=== PATIENT | male | born 1975 | race Caucasian/White ===

== ENCOUNTER 2016-09-16 21:29 | Emergency (ER) | payer OTHER, SELFPAY ==
[~2016-09-16] VITALS: Ht 190.5 cm; Wt 118.7 kg
--- NOTE | 2016-09-16 23:40 | REPUSA ---
Clinical history: Pain, swelling. Findings: The right common femoral, superficial femoral, popliteal, and other deep venous structures compress normally and demonstrate normal color Doppler flow. Normal venous waveforms with augmentatio n are seen. Impression: No evidence of deep vein thrombosis in the right femoral popliteal venous system.
[2016-09-17] MEDS ORDERED: NORCO, ANEXSIA 5/325MG TABLET (HYDROcodone/ACETAMINOPHEN) PO ONE (00:30)
[2016-09-17] MEDS ORDERED: NORCOTAB PO (00:31)
[2016-09-17 00:44] VITALS: BP 150/106
[2016-09-17] MEDS ORDERED: CYCL10TA PO (12:40)
[2016-09-17] MEDS ORDERED: NAPR500T PO (12:40)
== END 2016-09-17 00:47 | disposition home or self-care (01) ==
LOC: M ED 22:42
DX: S86.111A Strain of other muscle(s) and tendon(s) of posterior muscle group at lower leg level, right leg, initial encounter (principal); X58.XXXA Exposure to other specified factors, initial encounter; Y92.89 Other specified places as the place of occurrence of the external cause; Y93.89 Activity, other specified; Y99.8 Other external cause status; F17.210 Nicotine dependence, cigarettes, uncomplicated

== ENCOUNTER 2016-09-17 10:31 | Emergency (ER) | payer OTHER ==
[~2016-09-17] VITALS: Ht 188 cm; Wt 118.0 kg
[~2016-09-17 10:31] MED LIST: NORCOTAB PO
[2016-09-17] MEDS ORDERED: KETOROLAC 60 MG/2 ML VIAL (J1885) IM ONE (11:45)
--- NOTE | 2016-09-17 12:18 | REP ---
RIGHT LOWER LEG: AP and lateral views of the right lower leg are performed and compared to prior ankle series 11/19/2013. No fracture or dislocation is seen. Benign cortical mixed density lesion in the distal tibia is stable compared to the prior exam. IMPRESSION: No acute abnormalities. Signed by Luis Marcial MD 09/17/2016 05:21 P
[2016-09-17] MEDS ORDERED: NAPR500T PO (12:40)
[2016-09-17] MEDS ORDERED: CYCL10TA PO (12:40)
[2016-09-17 12:43] VITALS: BP 155/116
== END 2016-09-17 12:51 | disposition home or self-care (01) ==
LOC: M ED 11:05
DX: S86.111A Strain of other muscle(s) and tendon(s) of posterior muscle group at lower leg level, right leg, initial encounter (principal); X58.XXXA Exposure to other specified factors, initial encounter; Y92.89 Other specified places as the place of occurrence of the external cause; Y93.89 Activity, other specified; Y99.8 Other external cause status; F17.210 Nicotine dependence, cigarettes, uncomplicated

== ENCOUNTER 2016-10-13 21:16 | Emergency (ER) | payer OTHER ==
[~2016-10-13] VITALS: Ht 190.5 cm; Wt 114.6 kg
[~2016-10-13 21:16] MED LIST changes: +CYCL10TA PO; +NAPR500T PO
[2016-10-13] MEDS ORDERED: APAP/CODEINE (21:24)
[2016-10-13] MEDS ORDERED: IBUP80TA (21:24)
[2016-10-13] MEDS ORDERED: AMOX500C (21:24)
[2016-10-14] MEDS ORDERED: ONDANSETRON 4 MG ORAL DISINTEGRATING TAB (S0181) PO ONE (00:15)
[2016-10-14] MEDS ORDERED: LIDOCAINE 2% W/EPIN INJ 20ML **PRES FREE INJ ONE (01:30)
[2016-10-14 03:44] VITALS: BP 146/95
== END 2016-10-14 03:46 | disposition home or self-care (01) ==
LOC: M ED 21:16
DX: K91.840 Postprocedural hemorrhage of a digestive system organ or structure following a digestive system procedure (principal)

== ENCOUNTER → 2016-10-19 | Outpatient (REF) | payer OTHER ==
[~2016-10-19] MED LIST changes: +AMOX500C; +APAP/CODEINE; +IBUP80TA
[2016-10-19 12:00] LABS: BASO % 0.5 % (0.0-1.0); EOS # 0.1 K/mm3 (0.0-0.50); EOS % 1.8 % (0.0-3.0); LARGE UNSTAINED CELL # 0.1 K/mm3 (0.0-0.4); LARGE UNSTAINED CELL % 2.2 % (0.0-4.0); LYMPH # 1.4 K/mm3 (1.5-4.5); MEAN CORPUSCULAR HEMOGLOBIN 31.4 pg (27.0-33.0); MEAN CORPUSCULAR HGB CONC 34.8 g/dl (32.0-36.5); MEAN CORPUSCULAR VOLUME 90.2 fl (80.0-96.0); MONO # 0.2 K/mm3 (0.0-0.8); MONO % 4.7 % (0.0-5.0); NEUTROPHILS # 2.6 K/mm3 (1.8-7.7); NEUTROPHILS % 60.9 % (36.0-66.0); PLATELET COUNT, AUTOMATED 150 k/mm3 (150-450); RED CELL DISTRIBUTION WIDTH 13.8 % (11.5-14.5); WHITE BLOOD COUNT 4.2 K/mm3 (4.0-10.0)
[2016-10-19 12:11] LABS: ALBUMIN 3.9 GM/DL (3.2-5.2); ALBUMIN/GLOBULIN RATIO 1.77 (1.00-1.93); ALKALINE PHOSPHATASE 70 U/L (45-117); ALT/SGPT 36 U/L (12-78); ANION GAP 7 MEQ/L (8-16); AST/SGOT 19 U/L (15-37); BILIRUBIN,TOTAL 0.5 MG/DL (0.2-1.0); BLOOD UREA NITROGEN 13 MG/DL (7-18); CALCIUM LEVEL 8.7 MG/DL (8.5-10.1); CARBON DIOXIDE LEVEL 27 MEQ/L (21-32); CHLORIDE LEVEL 110 MEQ/L (98-107); CHOLESTEROL LEVEL 135 MG/DL (<200); CREATININE FOR GFR 1.19 MG/DL (0.70-1.30); FREE T4 1.04 NG/DL (0.76-1.46); GLOMERULAR FILTRATION RATE > 60.0 (>60); GLUCOSE, FASTING 92 MG/DL (70-105); POTASSIUM SERUM 4.2 MEQ/L (3.5-5.1); SODIUM LEVEL 144 MEQ/L (136-145); TOTAL PROTEIN 6.1 GM/DL (6.4-8.2); TRIGLYCERIDES LEVEL 91 MG/DL (<150)
== END ==
LOC: M SFHCPLAZ 08:00
PROVIDERS: ATTEND Nurse Practitioner Family
DX: Z00.00 Encounter for general adult medical examination without abnormal findings (principal); R03.0 Elevated blood-pressure reading, without diagnosis of hypertension; E66.9 Obesity, unspecified; Z13.220 Encounter for screening for lipoid disorders

== ENCOUNTER → 2016-11-01 | Outpatient (REF) | payer OTHER ==
[2016-11-01 11:56] LABS: BASO % 0.5 % (0.0-1.0); EOS # 0.1 K/mm3 (0.0-0.50); EOS % 2.1 % (0.0-3.0); LARGE UNSTAINED CELL # 0.1 K/mm3 (0.0-0.4); LARGE UNSTAINED CELL % 1.9 % (0.0-4.0); LYMPH # 1.4 K/mm3 (1.5-4.5); LYMPH % 34.3 % (24.0-44.0); MEAN CORPUSCULAR HEMOGLOBIN 31.2 pg (27.0-33.0); MEAN CORPUSCULAR HGB CONC 33.6 g/dl (32.0-36.5); MEAN CORPUSCULAR VOLUME 92.7 fl (80.0-96.0); MONO # 0.2 K/mm3 (0.0-0.8); NEUTROPHILS # 2.2 K/mm3 (1.8-7.7); NEUTROPHILS % 55.1 % (36.0-66.0); PLATELET COUNT, AUTOMATED 151 k/mm3 (150-450); RED CELL DISTRIBUTION WIDTH 13.7 % (11.5-14.5); RETIC HEMOGLOBIN CONTENT CHr 31.4 PG (24-36); RETICULOCYTE ABSOLUTE ADVIA212 129 x10(9)/L (17-77)
[2016-11-01 12:11] LABS: PERCENT SATURATION 16.9 % (19.7-37.4)
== END ==
LOC: M SFHCPLAZ 09:04
PROVIDERS: ATTEND Nurse Practitioner Family
DX: D64.9 Anemia, unspecified (principal)

== ENCOUNTER → 2018-10-26 | Outpatient (CLI) | payer OTHER, SELFPAY ==
[~2018-10-26] MED LIST changes: +HYDR-3715 PO; +NAPR-837 PO; -NAPR500T PO; -NORCOTAB PO
--- NOTE | 2018-10-27 07:46 | REP ---
Clinical: Back and hip pain. Technique: Neutral and frog lateral views of the right hip. Findings: No acute fracture or dislocation. Skeletal structures, joint spaces, and surrounding soft tissues are relatively normal for age. Very subtle joint space narrowing and extremely mild spurring along the acetabular roof cannot be excluded. Impression: Essentially age-related changes. Electronically Signed by Jarrett Rizo MD 10/27/2018 07:38 A
--- NOTE | 2018-10-27 07:50 | REP ---
Clinical: Back pain . Technique: AP, lateral, bilateral oblique, and coned-down views. Findings: Alignment and lordosis is maintained. The vertebral bodies including transverse process and spinous processes are intact and normal. There is no evidence for acute fracture / compression injury or subluxation. No evidence for spondylolysis or spondylolisthesis. Minimal endplate sclerosis and disc space narrowing at L4-5 and L5-S1 cannot be excluded. Impression: Essentially age-appropriate examination. Minimal disc space narrowing at L4-5 and L5-S1 cannot be excluded. Electronically Signed by Jarrett Rizo MD 10/27/2018 07:42 A
== END ==
LOC: M RAD 13:59 → EDBD 13:59
PROVIDERS: ATTEND Nurse Practitioner Family
DX: M54.16 Radiculopathy, lumbar region (principal)

== ENCOUNTER 2020-02-04 15:22 | Observation (INO) | payer OTHER, SELFPAY ==
[~2020-02-04] VITALS: Ht 188 cm; Wt 109.9 kg
[~2020-02-04 15:22] MED LIST changes: +CYCL-707 PO; -CYCL10TA PO
[2020-02-04] MEDS ORDERED: AMOX875T2 PO (15:32)
[2020-02-04] MEDS ORDERED: HYDR-3713 PO (15:32)
[2020-02-04] MEDS ORDERED: hydrALAZINE 20MG/ML 1ML VIAL (J0360 PER 20MG) IV STA (16:00)
--- NOTE | 2020-02-04 16:22 | REP ---
INDICATION: hypertensive. COMPARISON: None. TECHNIQUE: Two views provided FINDINGS: Lungs are well inflated without pleural effusion, acute infiltrate, atelectasis or mass. The heart, mediastinal and hilar contours are grossly intact. The aorta is mildly tortuous without gross aneurysm. Airway midline. No mediastinal or hilar mass. Bony thorax shows no acute compression deformity. IMPRESSION: No acute cardiopulmonary disease. <Electronically signed by Ricardo Granda > 02/04/20 [id number]
[2020-02-04 16:45] LABS: BASO % 0.5 % (0.0-1.0); EOS # 0.1 10^3/uL (0.0-0.5); EOS % 1.4 % (0.0-3.0); HEMATOCRIT 40.6 % (42.0-52.0); HEMOGLOBIN 13.8 g/dl (13.5-17.5); LYMPH # 1.8 10^3/uL (1.5-5.0); LYMPH % 26.8 % (24.0-44.0); MEAN CORPUSCULAR HEMOGLOBIN 30.2 pg (27.0-33.0); MEAN CORPUSCULAR VOLUME 88.8 fl (80.0-96.0); MONO # 0.5 10^3/uL (0.0-0.8); NEUTROPHILS # 4.2 10^3/uL (1.5-8.5); PLATELET COUNT, AUTOMATED 141 10^3/uL (150-450); RED BLOOD COUNT 4.57 10^6/uL (4.30-6.10); WHITE BLOOD COUNT 6.6 10^3/uL (4.0-10.0)
[2020-02-04 17:15] LABS: ALBUMIN 3.8 GM/DL (3.2-5.2); ALT/SGPT 33 U/L (12-78); BILIRUBIN,DIRECT 0.2 MG/DL (0.0-0.2); BILIRUBIN,TOTAL 0.8 MG/DL (0.2-1.0); BLOOD UREA NITROGEN 11 MG/DL (7-18); CALCIUM LEVEL 8.5 MG/DL (8.5-10.1); CARBON DIOXIDE LEVEL 30 MEQ/L (21-32); CHLORIDE LEVEL 110 MEQ/L (98-107); CK-MB VALUE MASS 1.9 NG/ML (<3.6); CPK CREATINE PHOSPHOKINASE 81 U/L (39-308); CREATININE FOR GFR 1.09 MG/DL (0.70-1.30); GLOMERULAR FILTRATION RATE > 60.0 (>60); GLUCOSE, FASTING 73 MG/DL (70-100); MB/CK RELATIVE INDEX 2.35 (< OR =4); POTASSIUM SERUM 3.9 MEQ/L (3.5-5.1); SODIUM LEVEL 143 MEQ/L (136-145); TOTAL PROTEIN 6.3 GM/DL (6.4-8.2); TROPONIN I < 0.02 NG/ML (< 0.10)
[2020-02-04] MEDS ORDERED: hydrALAZINE 20MG/ML 1ML VIAL (J0360 PER 20MG) IV ONE (17:30)
[2020-02-04] MEDS ORDERED: AMOX875T PO (17:58)
[2020-02-04] MEDS ORDERED: IBUP1TAB6 PO (17:58)
[2020-02-04] MEDS ORDERED: CAPTOpril 6.25 MG PER 1/2 TABLET PO SCH (18:30)
[2020-02-04] MEDS ORDERED: CAPTOpril 12.5 MG TAB PO ONE (18:45)
--- NOTE | 2020-02-04 19:18 | HPEPDOC ---
[facility] Medical History & Physical Date of Admission Feb 04, 2020 Date of Service: Feb 04, 2020 History and Physical CHIEF COMPLAINT: hypertensive urgency HISTORY OF PRESENT ILLNESS: Mr. rose a 44-year-old male with a history of suspected migraines, was sent to the ER by his dentist after after tooth extraction, where he was noted to have a systolic blood pressure over 200. Extraction was completed. On arrival to the ED, patient's blood pressure was 292, temperature 97.1, respiratory 20, pulse 59, pulse oximetry 99% on room air. She was given a total of 30 mg of IV hydralazine with no improvement in his blood pressure. Highest recorded blood pressure 246/135. Patient denies headache, vision changes, nausea, vomiting, chest pain, shortness of breath or palpitations. He received 6.6. Hemoglobin 13.8. Sodium 143, potassium 3.9, creatinine 1.09, GFR 60. Normal sinus rhythm on EKG. Chest x-ray revealed no abnormality PAST MEDICAL HISTORY: Migraines PAST SURGICAL HISTORY: Patient reports no surgical history SOCIAL HISTORY: Patient denies smoking Patient denies etoh use Patient denies illicit drug use FAMILY HISTORY: Patient reports no family history ALLERGIES: Please see below. REVIEW OF SYSTEMS: CONSTITUTIONAL: patient denies fevers, chills HEENT: patient denies blurred vision, loss of vision, headache,. CARDIOVASCULAR: patient denies chest pain, palpitations. RESPIRATORY: patient denies shortness of breath, cough, hemoptysis. GASTROINTESTINAL: patient denies abdominal pain, n/v/d, blood in stool. GENITOURINARY: patient denies dysuria, discharge. SKIN: patient denies rashes. MUSCULOSKELETAL: patient denies joint pain, neck pain. NEUROLOGICAL: patient denies focal weakness, numbness, seizures. PSYCHIATRIC: patient denies SI/HI. ENDOCRINE: patient denies polyuria, heat intolerance, cold intolerance. HEMATOLOGIC/LYMPHATIC: patient denies easy bruising. HOME MEDICATIONS: Please see below. PHYSICAL EXAMINATION: VITAL SIGNS: please see below General: NAD, comfortable HEENT: PERRLA, EOMI, sclerae clear Neck: supple, normal ROM, no JVD Respiratory: lungs CTAB, no wheeze, no rales, no crackles CVS: RRR, normal S1, S2, no murmurs Abdo: soft, no masses, no hepatosplenomegaly, BS+, no rebound tenderness Extremities: no edema, pulses 2+ MSK: no joint deformities, normal ROM Neuro: no focal neuro deficits, moving all 4 extremities, CN2-12 intact. Strength 5/5 in all 4 extremities. No nystagmus. Psych: calm, cooperative, AAO x 3 LABORATORY DATA: See below. IMAGING: CXR 02/04/20: no acute findings. MICROBIOLOGY: Please see below. ASSESSMENT: 44-year-old male with a history of migraines, admitted for hypertensive urgency. Did not respond to IV hydralazine ER. Admitted for observa tion, management of hypertensive urgency. PLAN: #. Hypertensive urgency: Plan to reduce map by 25% in 24 hours. Ordered captopril 12.5 mg by mouth. 6.25 mg every 2 hours. If no response. Plan to prasad sfer to ICU with nitroglycerin drip. Follow-up on UA. Check 2-D echo. Renal ultrasound and renal artery Dopplers ordered. DVT prophylaxis: Lovenox. Vital Signs Vital Signs Date Time Temp Pulse Resp B/P (MAP) Pulse Ox O2 Delivery O2 Flow Rate FiO2 02/04/20 19:01 216/192 (200) 02/04/20 18:52 65 16 100 Room Air 02/04/20 15:22 97.1 Laboratory Data Labs 24H Laboratory Tests 2 02/04/20 16:18: Immature Granulocyte % (Auto) 0.3, Neutrophils (%) (Auto) 64.0, Lymphocytes (%) (Auto) 26.8, Monocytes (%) (Auto) 7.0H, Eosinophils (%) (Auto) 1.4, Basophils (%) (Auto) 0.5, Neutrophils # (Auto) 4.2, Lymphocytes # (Auto) 1.8, Monocytes # (Auto) 0.5, Eosinophils # (Auto) 0.1, Basophils # (Auto) 0.0, Nucleated Red Blood Cells % (auto) 0.0, Anion Gap 3L, Glomerular Filtration Rate > 60.0, Calcium Level 8.5, Total Bilirubin 0.8, Direct Bilirubin 0.2, Aspartate Amino Transf (AST/SGOT) 21, Alanine Aminotransferase (ALT/SGPT) 33, Alkaline Phosphatase 75, Total Creatine Kinase 81, Creatine Kinase MB 1.9, Creatine Kinase MB Relative Index 2.35, Troponin I < 0.02, Total Protein 6.3L, Albumin 3.8, Albumin/Globulin Ratio 1.5, Thyroid Stimulating Hormone (TSH) 1.300, Free Thyroxine 1.00 CBC/BMP Laboratory Tests 02/04/20 16:18 Home Medications Scheduled Amoxicillin (Amoxicillin) 875 Mg Tablet, 875 MG PO BID Amoxicillin/Potassium Clav (Amox-Clav 875-125 mg Tablet) 1 Each Tablet, 1 TAB PO BID Scheduled PRN Hydrocodone/Acetaminophen (Hydrocodone-Acetamin 5-325 mg) 1 Each Tablet, 1 TAB PO QID PRN for PAIN Ibuprofen (Ibuprofen) 600 Mg Tablet, 600 MG PO Q6H PRN for PAIN Allergies Coded Allergies: SEAFOOD (Verified Allergy, Unknown, 02/04/20) MEREDITH BARTLETT MD Feb 04, 2020 19:18
--- NOTE | 2020-02-04 19:49 | ECGEPIP ---
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
[2020-02-04 20:30] VITALS: BP 172/100
[2020-02-04 21:30] VITALS: BP 156/92
[2020-02-04] MEDS: CAPTOpril 6.25 MG PER 1/2 TABLET PO SCH ×2 (21:30→23:26)
[2020-02-04 22:00] VITALS: BP 150/90
[2020-02-05] VITALS (10 sets, daily range): BP systolic 134–180; BP diastolic 80–100
[2020-02-05] MEDS: CAPTOpril 6.25 MG PER 1/2 TABLET PO SCH (01:30)
[2020-02-05] MEDS ORDERED: ACETAMINOPHEN 500 MG TAB PO PRN (04:00)
[2020-02-05] MEDS: traMADol 50 MG TAB PO PRN ×2 (08:30→17:01)
[2020-02-05 08:37] LABS: HEMATOCRIT 42.6 % (42.0-52.0); HEMOGLOBIN 14.3 g/dl (13.5-17.5); MEAN CORPUSCULAR HGB CONC 33.6 g/dl (32.0-36.5); MEAN CORPUSCULAR VOLUME 89.3 fl (80.0-96.0); PLATELET COUNT, AUTOMATED 144 10^3/uL (150-450); RED BLOOD COUNT 4.77 10^6/uL (4.30-6.10); WHITE BLOOD COUNT 8.3 10^3/uL (4.0-10.0)
[2020-02-05] MEDS ORDERED: INFLUENZA QUADRIVALENT PF VACCINE 0.5ML SYRINGE IM ONE (09:00)
[2020-02-05] MEDS ORDERED: amLODIPine 5 MG TAB PO SCH (09:00)
[2020-02-05 09:18] LABS: ALBUMIN 3.8 GM/DL (3.2-5.2); ALT/SGPT 31 U/L (12-78); BILIRUBIN,TOTAL 1.1 MG/DL (0.2-1.0); BLOOD UREA NITROGEN 12 MG/DL (7-18); CALCIUM LEVEL 8.8 MG/DL (8.5-10.1); CARBON DIOXIDE LEVEL 26 MEQ/L (21-32); CHLORIDE LEVEL 111 MEQ/L (98-107); CREATININE FOR GFR 1.09 MG/DL (0.70-1.30); GLOMERULAR FILTRATION RATE > 60.0 (>60); GLUCOSE, FASTING 91 MG/DL (70-100); POTASSIUM SERUM 4.3 MEQ/L (3.5-5.1); SODIUM LEVEL 142 MEQ/L (136-145); TOTAL PROTEIN 6.4 GM/DL (6.4-8.2)
--- NOTE | 2020-02-05 10:01 | REP ---
INDICATION: Hypertension. R/O Renal Artery Stenosis. Renal artery Doppler as well as morphologic imaging requested. COMPARISON: None. TECHNIQUE: Transabdominal urinary tract sonography and renal artery Doppler FINDINGS: Scanning at the level of the urinary bladder shows no abnormality. Renal cortical echogenicity pattern is normal bilaterally and contours are smooth. There is no evidence of hydronephrosis, cyst, mass, or calculus in either kidney. The right kidney measures 12.5 x 5.6 x 7.0 cm. Left renal dimensions are 12.4 x 5.7 x 5.2 cm. Renal artery Doppler flow assessment Peak systolic flow velocity in the abdominal aorta at the level of the main renal arteries with normal measured at 104 centimeters/second. Peak systolic flow velocity in the right main renal artery is normal at 99 centimeters/second and that in the left also normal at 70 centimeters/second. Renal to aortic flow velocity ratios are therefore normal at 0.95 on the right and 0.67 on the left. Resistive indices and acceleration times are measured in the intralobar arteries of the upper, mid, and lower pole of each kidney. These values are normal bilaterally. IMPRESSION: Normal urinary tract sonography.There is no Doppler evidence to suggest renal artery stenosis. <Electronically signed by Sandoval Owens > 02/05/20 0914
[2020-02-05] MEDS ORDERED: PIPERACILLIN/TAZOBACTAM SOD 3.375 GM in D5W MINI-BAG PLUS 50 ML IV SCH (11:00)
[2020-02-05] MEDS ORDERED: AMLO1TAB24 PO (12:06)
--- NOTE | 2020-02-05 12:18 | DS.PDOC ---
Discharge Summary General Date of Admission Feb 04, 2020 at 18:37 Date of Discharge 02/05/20 Attending Physician: Nneka Webster MD Discharge Summary HISTORY OF PRESENT ILLNESS: Mr. rose a 44-year-old male with a history of suspected migraines, was sent to the ER by his dentist after after tooth extraction, where he was noted to have a systolic blood pressure over 200. Extraction was completed. On arrival to the ED, patient's blood pressure was 292, temperature 97.1, respiratory 20, pulse 59, pulse oximetry 99% on room air. She was given a total of 30 mg of IV hydralazine with no improvement in his blood pressure. Highest recorded blood pressure 246/135. Patient denies heada waqar, vision changes, nausea, vomiting, chest pain, shortness of breath or palpitations. He received 6.6. Hemoglobin 13.8. Sodium 143, potassium 3.9, creatinine 1.09, GFR 60. Normal sinus rhythm on EKG. Chest x-ray revealed no abnormality. HOSPITAL COURSE: Patient was treated with high dose tylenol, pain control for right tooth pain showing some improvement with BP overnight. BP remained 150 mmHg so amlodipine added, low dose. Antibiotics were reintroduced. Renal US neg, echocardiogram was done early in AM on 02/05/20 but will not be available for results until 02/06/20. Discussed plan with patient to d/c home with antihypertensive and for him to c/w abx prescribed by oral surgeon. Uncontrolled HTN likely 2/2 to tooth pain that is new for patient. He will be discharged home to f/u with PCP and oral surgeon/dentist. If fevers, chillls, n/v/d, incr right jaw swelling occurs, he needs to see a provider immediately. PAST MEDICAL HISTORY: Migraine headache PAST SURGICAL HISTORY: Patient reports no surgical history SOCIAL HISTORY: Patient denies smoking Patient denies etoh use Patient denies illicit drug use FAMILY HISTORY: Patient reports no family history ALLERGIES: Please see below. DISCHARGE MEDICATIONS: Please see below. PHYSICAL EXAMINATION: VITAL SIGNS: please see below General: NAD, comfortable HEENT: PERRLA, EOMI, sclerae clear, RIGHT jaw swelling with tenderness to palpation under jaw. On exam of mouth, clean area where right bottom tooth was extracted recently Neck: supple, normal ROM, no JVD Respiratory: lungs CTAB, no wheeze, no rales, no crackles CVS: RRR, normal S1, S2, no murmurs Abdo: soft, no masses, no hepatosplenomegaly, BS+, no rebound tenderness Extremities: no edema, pulses 2+ MSK: no joint deformities, normal ROM Neuro: no focal neuro deficits, moving all 4 extremities, CN2-12 intact. Strength 5/5 in all 4 extremities. No nystagmus. Psych: calm, cooperative, AAO x 3 LABORATORY DATA: See below. IMAGING: Renal US: no acute abnormality Echocardiogram: Results pending CXR 02/04/20: no acute findings. MICROBIOLOGY: Please see below. ASSESSMENT: 44-year-old male with a history of migraines, admitted for hypertensive urgency likely 2/2 to uncontrolled pain from tooth extraction. PLAN: # Hypertensive urgency likely 2/2 to uncontrolled pain from tooth extraction -better controlled with pain medications and amlodpine low dose. -Renal US: neg -Echocardiogram: results pending. Please have PCP f/u as o/p on results. -D/c with pain medications and abx regimen he was previously on. Recommend f/u with PCP within 1-2 weeks and close f/u with oral surgery/dentist. #Infected tooth s/p extraction -Please see plan above #Migraine headaches -Stable DISPOSITION: Discharge home today to f/u with PCP and oral surgeon/dentist. Recommmend PCP to f/u echocardiogram as o/p TIME SPENT ON DISCHARGE: Greater than 30 minutes. Vital Signs/I&Os Vital Signs Date Time Temp Pulse Resp B/P (MAP) Pulse Ox O2 Delivery O2 Flow Rate FiO2 02/05/20 08:31 62 172/100 02/05/20 08:30 18 02/05/20 08:00 97.9 98 Room Air I&O- Last 24 Hours up to 6 AM 02/05/20 06:00 Intake Total 300 ml Output Total 0 ml Balance 300 ml Laboratory Data Labs 24H Laboratory Tests 2 02/04/20 16:18: Immature Granulocyte % (Auto) 0.3, Neutrophils (%) (Auto) 64.0, Lymphocytes (%) (Auto) 26.8, Monocytes (%) (Auto) 7.0H, Eosinophils (%) (Auto) 1.4, Basophils (%) (Auto) 0.5, Neutrophils # (Auto) 4.2, Lymphocytes # (Auto) 1.8, Monocytes # (Auto) 0.5, Eosinophils # (Auto) 0.1, Basophils # (Auto) 0.0, Nucleated Red Blood Cells % (auto) 0.0, Anion Gap 3L, Glomerular Filtration Rate > 60.0, Calcium Level 8.5, Total Bilirubin 0.8, Direct Bilirubin 0.2, Aspartate Amino Transf (AST/SGOT) 21, Alanine Aminotransferase (ALT/SGPT) 33, Alkaline Phosphatase 75, Total Creatine Kinase 81, Creatine Kinase MB 1.9, Creatine Kinase MB Relative Index 2.35, Troponin I < 0.02, Total Protein 6.3L, Albumin 3.8, Albumin/Globulin Ratio 1.5, Thyroid Stimulating Hormone (TSH) 1.300, Free Thyroxine 1.00 02/05/20 08:28: Nucleated Red Blood Cells % (auto) 0.0, Anion Gap 5L, Glomerular Filtration Rate > 60.0, Calcium Level 8.8, Total Bilirubin 1.1H, Aspartate Amino Transf (AST/SGOT) 25, Alanine Aminotransferase (ALT/SGPT) 31, Alkaline Phosphatase 73, Total Protein 6.4, Albumin 3.8, Albumin/Globulin Ratio 1.5 CBC/BMP Laboratory Tests 02/04/20 16:18 02/05/20 08:28 Discharge Medications Scheduled Amlodipine Besylate (Amlodipine Besylate) 5 Mg Tablet, 5 MG PO DAILY Amoxicillin/Potassium Clav (Amox-Clav 875-125 mg Tablet) 1 Each Tablet, 1 TAB PO BID, (Reported) Scheduled PRN Hydrocodone/Acetaminophen (Hydrocodone-Acetamin 5-325 mg) 1 Each Tablet, 1 TAB PO QID PRN for PAIN, (Reported) Ibuprofen (Ibuprofen) 600 Mg Tablet, 600 MG PO Q6H PRN for PAIN, (Reported) Allergies Coded Allergies: SEAFOOD (Verified Allergy, Unknown, 02/04/20) Nneka Webster MD Feb 05, 2020 12:18
[2020-02-05] MEDS ORDERED: hydrALAZINE 20MG/ML 1ML VIAL (J0360 PER 20MG) IV STA ×2 (16:55→18:02)
--- NOTE | 2020-02-06 11:56 | ECHO ---
DATE OF PROCEDURE: 02/05/2020 Age: 44 Gender: Male Height: 180 cm Weight: 113 kg REFERRING PHYSICIAN: Dr. Hunter Umanzor INDICATION: Hypertension MEASUREMENTS: IVS 1.3 LV 4.6 LVPW 1.0 LA 4.2 Aorta 3.6. RV 3.9 IVC 1.9 Mitral E wave velocity 103, A wave 67 E prime septal 8.1 E prime lateral 10.2 Left atrial volume index 26. FINDINGS: The study is of acceptable technical quality, especially considering the patient's body habitus. The patient is in sinus rhythm. Left ventricle is normal size and systolic function with estimated left ventricular ejection fraction (LVEF) 60 to 65%. Mild left ventricular hypertrophy is noted. Right ventricle is also normal size and systolic function. Both atria appear normal. All four cardiac valves are reasonably well seen and appear normal. No pericardial effusion is noted. Inferior vena cava is normal size. Aortic root and aortic arch appear normal. Abdominal aorta was not well seen. Doppler interrogation reveals no aortic stenosis or insufficiency. There are also competent mitral and tricuspid valves. Trace pulmonic insufficiency is seen. Mitral inflow pattern and tissue Doppler imaging of mitral annulus reveal normal diastolic function. CONCLUSIONS: 1. Study is of acceptable technical quality. The patient is in sinus rhythm. 2. Normal LV size with mild left ventricular hypertrophy (LVH) and preserved LV systolic function. Preserved diastolic function. 3. No significant valvular disease. 4. Likely sayda central venous pressure. 5. Unable to estimate pulmonary artery pressure, but no signs to suggest pulmonary hypertension. COMMENTS: SBE prophylaxis is not recommended. MTDD
== END 2020-02-05 18:55 | disposition home or self-care (01) ==
LOC: M ED 15:22 → M PCU 18:37 → ENRESERV 19:13
PROVIDERS: ADMIT Family Medicine; ATTEND Family Medicine
DX: I16.0 Hypertensive urgency (principal); G43.909 Migraine, unspecified, not intractable, without status migrainosus; I10 Essential (primary) hypertension; F17.218 Nicotine dependence, cigarettes, with other nicotine-induced disorders; Z79.899 Other long term (current) drug therapy; Z91.013 Allergy to seafood
CPT/HCPCS: 36415; 71046; 76775; 80048; 80053; 80076; 82550; 82553; 84439; 84443; 84484; 85025; 85027; 90460; 90686; 93005; 93041; 93306; 93975; 94760; 96365; 96375; 96376; 99285; J0360; J2543

== ENCOUNTER 2020-02-11 20:34 | Emergency (ER) | payer OTHER ==
[~2020-02-11] VITALS: Ht 188 cm; Wt 109.0 kg
[~2020-02-11 20:34] MED LIST changes: +AMLO1TAB24 PO; +AMOX875T PO; +AMOX875T2 PO; +HYDR-3713 PO; +IBUP1TAB6 PO
[2020-02-11] MEDS ORDERED: LISI10TA4 PO (20:44)
--- NOTE | 2020-02-11 21:05 | REPVR ---
PROCEDURE INFORMATION: Exam: XR Chest, 1 View Exam date and time: 02/11/2020 8:55 PM Age: 44 years old Clinical indication: Chest pain; Type not specified TECHNIQUE: Imaging protocol: XR of the chest Views: 1 view. COMPARISON: MO Chest, 2 view PA, Lat 02/04/2020 4:07 PM FINDINGS: Lungs: Unremarkable. No consolidation. Pleural space: Unremarkable. No pleural effusion. No pneumothorax. Heart/Mediastinum: Unremarkable. No cardiomegaly. Bones/joints: Unremarkable. IMPRESSION: No acute findings. Electronically signed by: Jean Paul Escamilla On 02/11/2020 21:05:43 PM
[2020-02-11 21:22] LABS: BASO # 0.1 10^3/uL (0.0-0.2); BASO % 0.8 % (0.0-1.0); EOS # 0.1 10^3/uL (0.0-0.5); EOS % 1.9 % (0.0-3.0); HEMATOCRIT 40.6 % (42.0-52.0); HEMOGLOBIN 13.6 g/dl (13.5-17.5); LYMPH # 2.1 10^3/uL (1.5-5.0); LYMPH % 36.3 % (24.0-44.0); MEAN CORPUSCULAR HEMOGLOBIN 29.8 pg (27.0-33.0); MEAN CORPUSCULAR HGB CONC 33.5 g/dl (32.0-36.5); MONO # 0.4 10^3/uL (0.0-0.8); MONO % 6.4 % (0.0-5.0); NEUTROPHILS # 3.2 10^3/uL (1.5-8.5); NEUTROPHILS % 54.3 % (36.0-66.0); PLATELET COUNT, AUTOMATED 173 10^3/uL (150-450); RED BLOOD COUNT 4.56 10^6/uL (4.30-6.10); WHITE BLOOD COUNT 5.9 10^3/uL (4.0-10.0)
[2020-02-11 21:37] LABS: CALCIUM LEVEL 8.9 MG/DL (8.5-10.1); CREATININE FOR GFR 1.47 MG/DL (0.70-1.30); GLOMERULAR FILTRATION RATE 55.4 (>60); POTASSIUM SERUM 3.7 MEQ/L (3.5-5.1)
[2020-02-11] MEDS: NITROGLYCERIN 0.4 MG SUBL TABLET SL PRN ×3 (21:41→21:55)
[2020-02-11] MEDS ORDERED: ASPIRIN 81 MG CHEW TABLET PO ONE (21:45)
[2020-02-11 21:55] VITALS: BP 149/81
[2020-02-11] MEDS ORDERED: NS 1,000 ML IV ONE (22:15)
--- NOTE | 2020-02-12 01:06 | ECGEPIP ---
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
[2020-02-12 03:15] VITALS: BP 144/96
--- NOTE | 2020-02-12 09:02 | ECGEPIP ---
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
== END 2020-02-12 03:31 | disposition home or self-care (01) ==
LOC: M ED 20:34
DX: R07.89 Other chest pain (principal); R06.00 Dyspnea, unspecified; I10 Essential (primary) hypertension; G43.909 Migraine, unspecified, not intractable, without status migrainosus; Z79.899 Other long term (current) drug therapy; Z91.018 Allergy to other foods; F17.210 Nicotine dependence, cigarettes, uncomplicated

== ENCOUNTER → 2020-02-14 | Outpatient (REF) | payer OTHER ==
[~2020-02-14] MED LIST changes: +LISI10TA4 PO
[2020-02-14 14:33] LABS: BLOOD UREA NITROGEN 18 MG/DL (7-18); CARBON DIOXIDE LEVEL 26 MEQ/L (21-32); CHLORIDE LEVEL 109 MEQ/L (98-107); CHOLESTEROL LEVEL 147 MG/DL (<200); CHOLESTEROL RISK RATIO 4.323 (<5); CREATININE FOR GFR 1.23 MG/DL (0.70-1.30); GLOMERULAR FILTRATION RATE > 60.0 (>60); GLUCOSE, FASTING 84 MG/DL (70-100); HDL CHOLESTEROL 34 MG/DL (>40); LDL CHOLESTEROL 95 MG/DL (<100); NON-HDL-C 113 MG/DL; POTASSIUM SERUM 4.6 MEQ/L (3.5-5.1); SODIUM LEVEL 143 MEQ/L (136-145); TRIGLYCERIDES LEVEL 90 MG/DL (<150)
== END ==
LOC: M SFHCPLAZ 10:44
PROVIDERS: ATTEND Family Medicine
DX: I10 Essential (primary) hypertension (principal); R79.89 Other specified abnormal findings of blood chemistry; Z13.1 Encounter for screening for diabetes mellitus; Z13.220 Encounter for screening for lipoid disorders

== ENCOUNTER → 2020-03-20 | Outpatient (CLI) | payer OTHER ==
--- NOTE | 2020-03-20 12:01 | REP ---
INDICATION: N50.811 R TESTICULAR PAIN right testicular pain.. COMPARISON: None. TECHNIQUE: Scrotal ultrasound including Doppler ultrasound. FINDINGS: The right testis measures 5.2 x 3.3 x 2.7 cm. The left testis measures 5.0 x 3.1 x 3.2 cm. The testes are normal size. There are no testicular solid or cystic masses. There is vascular flow in both testes. The Doppler resistive index in the parenchymal arteries of the right testis is 0.51 left testis 0.46. There are no hydroceles. Scrotal wall thickness is normal. The right epididymal head is normal size measuring 5 mm. There is no epididymal head cyst. The left epididymal head could not be visualized. IMPRESSION: There are no solid or cystic testicular masses. There is vascular flow in both testes. Otherwise, essentially negative scrotal ultrasound. <Electronically signed by Luis Thomas > 03/20/20 [id number]
== END ==
LOC: M WHC 08:30
PROVIDERS: ATTEND Family Medicine
DX: N50.811 Right testicular pain (principal)

== ENCOUNTER → 2020-04-08 | Outpatient (REF) | payer OTHER ==
[2020-04-08 18:55] LABS: BLOOD UREA NITROGEN 19 MG/DL (7-18); CALCIUM LEVEL 9.2 MG/DL (8.5-10.1); CARBON DIOXIDE LEVEL 31 MEQ/L (21-32); CHLORIDE LEVEL 108 MEQ/L (98-107); CREATININE FOR GFR 1.21 MG/DL (0.70-1.30); GLOMERULAR FILTRATION RATE > 60.0 (>60); GLUCOSE, FASTING 84 MG/DL (70-100); POTASSIUM SERUM 4.6 MEQ/L (3.5-5.1); SODIUM LEVEL 141 MEQ/L (136-145)
[2020-04-09 10:55] LABS: APPEARANCE, URINE CLEAR (CLEAR); BACTERIA, URINE AUTO NEGATIVE (NEGATIVE); BILIRUBIN, URINE AUTO NEGATIVE (NEGATIVE); BLOOD, URINE BLOOD NEGATIVE (NEGATIVE); COLOR, URINE YELLOW (YELLOW); GLUCOSE, URINE (UA) AUTO NEGATIVE (NEGATIVE); KETONE, URINE AUTO NEGATIVE (NEGATIVE); LEUKOCYTE ESTERASE, URINE AUTO NEGATIVE (NEGATIVE); NITRITE, URINE AUTO NEGATIVE (NEGATIVE); PROTEIN, URINE AUTO NEGATIVE (NEGATIVE); RBC, URINE AUTO 0 /HPF (0-3); SPECIFIC GRAVITY URINE AUTO 1.027 (1.002-1.035); SQUAMOUS EPITHELIAL CELL UR AU 0 /HPF (0-6); UROBILINOGEN, URINE AUTO 0.2 mg/dL (0.0-2.0); WBC, URINE AUTO 0 /HPF (0-3)
== END ==
LOC: M SFHCPLAZ 15:34
PROVIDERS: ATTEND Family Medicine
DX: I10 Essential (primary) hypertension (principal); N50.811 Right testicular pain

== ENCOUNTER 2020-05-29 18:17 | Emergency (ER) | payer OTHER ==
[~2020-05-29] VITALS: Ht 188 cm; Wt 113.2 kg
[2020-05-29 18:17] VITALS: BP 124/82
[~2020-05-29 18:17] MED LIST changes: +LISI10TA22 PO; -LISI10TA4 PO
--- OUTSIDE RECORDS SUMMARY | 2020-05-29 18:22 | CCD ---
Author Author [facility] Organization [facility] Address Unknown Phone Unavailable Care Team Providers Care Glass Installer Technician Name Role Phone Christopher Shi Unavailable PROBLEMS Type Condition ICD9-CM Code [id number] Code Onset Dates Condition S tatus SNOMED Code Notes Problem Nicotine use disorder F17.200 Active 86009321 Problem Essential hypertension I10 Active 06952069 Problem Obesity (BMI 30-39.9) E66.9 Active 180120501 Problem Iron deficiency anemia, unspecified iron deficiency an emia type D50.9 Active 68854624 Problem Acute midline low back pain with right-sided sciatica M54.41 Active 237729187 ALLERGIES Allergen (clinical drug ingredient) Drug/Non Drug Allergy do cumented on EMR Reaction Allergy Type Onset Date Status seafood Anaphylaxis Non Drug Allergy Active ENCOUNTERS from 1975 to 2020-04-14 Encounter Location Date Provider [place] [facility] [place] [place] [address] [place] [address] Apr, Christopher Parkorlin Essential hypertension I10 ; Nicotine use disorder F17.200 and Right testicular pain N50.811 IMMUNIZATIONS Vaccine Route Administration Date Status Pneumococcal Adult 0.5mL (Pneumovax 23) IM Intramuscular Feb 06, 2020 Administered SOCIAL HISTORY Tobacco Use: Social History Observation Description Date Details (start date - stop date) Former Smoker Sex Assigned At : Social History Observation Description Sex Assigned At Unknown Education: Question Answer Notes Level of Education: Finished College libral arts Language: Question Answer Notes Languages spoken: Monegasque Latter-Day: Question Answer Notes Latter-Day 21 Restoration Domestic Violence: Question Answer Notes Status: Number of months/years in current relationship? use notes se ction 10 years Does the patient divulge that the partner hit them? No Does the patient divulge that the partner hits the chi ldren in the household? No Does the patient consider the partner abusive? No Has the patient ever been in a situation involving domestic violence? No Has the emietn ever been injured, homeb ound, or hospitalized due to an altercation with significant other? No Sexual Hx: Question Answer Notes Had sex in the last 12 months (vaginal, oral, or anal)? Yes Have you ever had an STD? No Prevention Strategies discussed: Other with Women only Use protection? No Alcohol Screening: Question Answer Notes Did you have a drink containing alcohol in the past year? Ye s Points 1 Interpretation Negative How often did you have six or more drinks on one occas ion in the past year? Never (0 points) How many drinks did you have on a typica l day when you were drinking in the past year? 1 or 2 (0 points) How often did you have a drink containing alcohol in t he past year? Monthly or less (1 point) BMI Care Goal Follow-Up Question Answer Notes Above Normal BMI Follow-Up Dietary management educatio n, guidance, and counseling Tobacco Use: Question Answer Notes Are you a: former smoker Smoking Cessation Information Given 10/25/2018 Patient counseled on the dangers of tobacco use and urged to quit: 10/25/2018 How many cigarettes a day do you smoke? 6-10 Are you interested in quitting? Thinking about quitting Counseled the patient on smoking cessation, education provid ed 10/25/2018 REASON FOR REFERRAL No Information VITAL SIGNS Weight 250 lbs Apr, Height 72 in Apr, BMI 33.90 kg/m2 Apr, Heart Rate 70 /min Apr, Respiratory Rate 17 /min Apr, Temperature 96.9 degrees Fahrenheit Apr, Oximetry 100 Apr, Blood pressure systolic 144 mm Hg Apr, Blood pressure diastolic 96 mm Hg Apr, MEDICATIONS Medication SIG (Take, Route, Frequency, Duration) Notes Start Da te End Date Status Chlorthalidone 25 MG 1 tablet in the morning with food Orally Once a day for 30 day(s) Active Lisinopril 20 MG 1 tablet Orally Once a day for 30 day(s) Active Robaxin-750 750 MG 1 tablet Orally every 8 hours for 14 days Active PROCEDURES No Information RESULTS No Results REASON FOR VISIT 1 month follow up bp MEDICAL (GENERAL) HISTORY Type Description Date Medical History hypertension Medical History tooth abscess Medical History migraine headaches Medical History 02/2020 TTE LVEF 60-65% w/ m ild LVH otherwise preserved LV systolic/diastolic function Surgical History No Surgical history information Hospitalization History increased BP 02/05/2020 Goals Section No Information Health Concerns No Information MEDICAL EQUIPMENT No Information MENTAL STATUS No Information FUNCTIONAL STATUS No Information ASSESSMENTS Encounter Date Diagnosis Assessment Notes Treatment Notes Treatm ent Clinical Notes Apr, Essential hypertension (ICD-10 - I10) Repeating BMP to establish baseline K, patient advised of SE. Advised him to call if he began to experience lightheadedness or dizziness and to seek ER attention in the event he developed chest pain or palpitations to seek attention in the ER. He has also been continuing to cut down on his salt intake and increasing his exercise. Apr, Nicotine use disorder (ICD-10 - F17.200) Continues to do well with cessation, has not had any cigarettes since 02/05/2020. Apr, Right testicular pain (ICD-10 - N50.811) Quality of discomfort has not changed at all, has been ongoing for 2 months at this point with negative testicular U/S, will obtain UA, GC testing, and if negative send to urology for further evaluation. Apr, Other see HTN Self r esolved. Patient reports improvement with conservative care. A1C within normal limits. ASCVD risk 3.1%, no indication for statin therapy. PLAN OF TREATMENT Medication Medication Name Sig Start Date Stop Date Chlorthalidone 25 MG 1 tablet in the morning with food Orally Once a day for 30 day(s) Robaxin-750 750 MG 1 tablet Orally every 8 hours for 14 days Lisinopril 20 MG 1 tablet Orally Once a day for 30 day(s) Treatment Notes Assessment Notes Clinical Notes Essential hypertension Repeating BMP to establish baseline K, patient advised of SE. Advised him to call if he began to experience lightheadedness or dizziness and to seek ER attention in the event he developed chest pain or palpitations to seek attention in the ER. He has also been continuing to cut down on his salt intake and increasing his exercise. Nicotine use disorder Continues to do we ll with cessation, has not had any cigarettes since 02/05/2020. Right testicular pain Quality of discomf ort has not changed at all, has been ongoing for 2 months at this point with negative testicular U/S, will obtain UA, GC testing, and if negative send to urology for further evaluation. Treatment Notes Test Name Order Date CHLAMYDIA & GC DNA AMPLIFICAT 2020-04-14 Basic Metabolic Profile (BMP) 2020-04-14 UA URINALYSIS 2020-04-14 Next Appt Details 4 Weeks Reason:BP, testicular pain Provider Name:Dimple Gonzales, 2020-04-04 9 09:00:00 AM, [address] , [place], [address], Provider Name:Christopher Shi, 2020-05-13 02 :30:00 PM, [address] [facility], [facility] [place], [address], Follow Up:4 WeeksBP, testicular pain Insurance Providers Payer Name Payer Address Payer Phone Insured Name Patient Relati onship to Insured Coverage Start Date Coverage End Date [facility] [address] [address] [facility] [phone] Cathy Gill
--- OUTSIDE RECORDS SUMMARY | 2020-05-29 18:22 | CCD ---
Author Author [facility] Organization [facility] Address Unknown Phone Unavailable Care Team Providers Care News Technical Director Name Role Phone Dimple Gonzales Unavailable PROBLEMS Type Condition ICD9-CM Code [id number] Code Onset Dates Condition S tatus SNOMED Code Notes Problem Nicotine use disorder F17.200 Active 31866318 Problem Essential hypertension I10 Active 67243090 Problem Obesity (BMI 30-39.9) E66.9 Active 229359028 Problem Iron deficiency anemia, unspecified iron deficiency an emia type D50.9 Active 54808429 Problem Acute midline low back pain with right-sided sciatica M54.41 Active 011312514 ALLERGIES Allergen (clinical drug ingredient) Drug/Non Drug Allergy do cumented on EMR Reaction Allergy Type Onset Date Status seafood Anaphylaxis Non Drug Allergy Active ENCOUNTERS from 1975 to 2020-04-27 Encounter Location Date Provider Diagnosis [facility] Urology [address] [address] Apr Dimple Gonzales Testicular pain, unspecified N50.819 and Acute midline low back pain with right-sided sciatica M54.41 IMMUNIZATIONS Vaccine Route Administration Date Status Pneumococcal Adult 0.5mL (Pneumovax 23) IM Intramuscular Feb 06, 2020 Administered SOCIAL HISTORY Tobacco Use: Social History Observation Description Date Details (start date - stop date) Former Smoker Sex Assigned At : Social History Observation Description Sex Assigned At Unknown Education: Question Answer Notes Level of Education: Finished College libral arts Language: Question Answer Notes Languages spoken: Omani Scientologist: Question Answer Notes Scientologist 21 Sabianism Domestic Violence: Question Answer Notes Status: Number of months/years in current relationship? use notes se ction 10 years Does the patient divulge that the partner hit them? No Does the patient divulge that the partner hits the chi jeffren in the household? No Does the patient [...] Answer Notes Are you a: former smoker quit about 3 month a go Smoking Cessation Information Given 10/25/2018 REASON FOR REFERRAL No Information VITAL SIGNS Weight 250 lbs Apr, Height 72 in Apr, BMI 33.90 kg/m2 Apr, Heart Rate 69 /min Apr, Respiratory Rate 18 /min Apr, Oximetry 99% Apr, Blood pressure systolic 144 mm Hg Apr, Blood pressure diastolic 100 mm Hg Apr, MEDICATIONS Medication SIG (Take, Route, Frequency, Duration) Notes Start Da te End Date Status Chlorthalidone 25 MG 1 tablet in the morning with food Orally Once a day for 30 day(s) Active Lisinopril 20 MG 1 tablet Orally Once a day for 30 day(s) Active Robaxin-750 750 MG 1 tablet Orally every 8 hours for 14 days Not-Taking PROCEDURES No Information RESULTS No Results REASON FOR VISIT right testicular pain MEDICAL (GENERAL) HISTORY Type Description Date Medical History hypertension Medical History tooth abscess Medical History migraine headaches Medical History 02/2020 TTE LVEF 60-65% w/ m ild LVH otherwise preserved LV systolic/diastolic function Surgical History tooth pulled Hospitalization History increased BP 02/05/2020 Goals Section No Information Health Concerns No Information MEDICAL EQUIPMENT No Information MENTAL STATUS No Information FUNCTIONAL STATUS No Information ASSESSMENTS Encounter Date Diagnosis Assessment Notes Treatment Notes Treatm ent Clinical Notes Apr, Testicular pain, unspecified (ICD-10 - N50.819) Apr, Acute midline low back pain with right-sided sciatica (ICD-10 - M54.41) PLAN OF TREATMENT Next Appt Details referral to ortho Reason: Provider Name:Christopher Nickorlin, 2020-05-13 02 :30:00 PM, [address] [facility], [place], [place], [id number], Insurance Providers Payer Name Payer Address Payer Phone Insured Name Patient Relati onship to Insured Coverage Start Date Coverage End Date [facility] [address] [address] [facility] [phone] Cathy Gill
--- OUTSIDE RECORDS SUMMARY | 2020-05-29 18:22 | CCD ---
Author Author [facility] Organization [facility] Address Unknown Phone Unavailable Care Team Providers Care Global Expansion Sales Director Name Role Phone Christopher Shi Unavailable PROBLEMS Type Condition ICD9-CM Code [id number] Code Onset Dates Condition S tatus SNOMED Code Notes Problem Nicotine use disorder F17.200 Active 42224002 Problem Essential hypertension I10 Active 37334674 Problem Obesity (BMI 30-39.9) E66.9 Active 786973465 Problem Iron deficiency anemia, unspecified iron deficiency an emia type D50.9 Active 87806537 Problem Acute midline low back pain with right-sided sciatica M54.41 Active 519242191 Problem Cigarette smoker F17.210 Active 02883709 ALLERGIES Allergen (clinical drug ingredient) Drug/Non Drug Allergy do cumented on EMR Reaction Allergy Type Onset Date Status seafood Anaphylaxis Non Drug Allergy Active ENCOUNTERS from 1975 to 2020-03-07 Encounter Location Date Provider Diagnosis [facility] [place] [address] [place] [address] Mar, Christopher Shi Essential hypertension I10 ; Atypical chest pain R07.89 ; Acute right-sided low back pain without sciatica M54.5 ; Diabetes mellitus screening Z13.1 ; Lipid screening Z13.220 ; Nicotine use disorder F17.200 and Right testicular pain N50.811 IMMUNIZATIONS Vaccine Route Administration Date Status Pneumococcal Adult 0.5mL (Pneumovax 23) IM Intramuscular Feb 06, 2020 Administered SOCIAL HISTORY Tobacco Use: Social History Observation Description Date Details (start date - stop date) Current Smoker Sex Assigned At : Social History Observation Description Sex Assigned At Unknown Education: Question Answer Notes Level of Education: Finished College libral arts Language: Question Answer Notes Languages spoken: Stateless Samaritan: Question Answer Notes Samaritan 21 Christianity Domestic Violence: Question Answer Notes Status: Number [...] situation involving domestic violence? No Has the patietn ever been injured, homeb ound, or hospitalized [...] Use: Question Answer Notes Are you a: current smoker Smoking Cessation Information Given 10/25/2018 Patient counseled on the dangers of tobacco use and urged to quit: 10/25/2018 How many cigarettes a day do you smoke? 6-10 Are you interested in quitting? Thinking about quitting Counseled the patient on smoking cessation, education provid ed 10/25/2018 REASON FOR REFERRAL No Information VITAL SIGNS Weight 249 lbs Mar, Height 72 in Mar, BMI 33.77 kg/m2 Mar, Heart Rate 80 /min Mar, Respiratory Rate 18 /min Mar, Temperature 97.1 degrees Fahrenheit Mar, Oximetry 99 Mar, Blood pressure systolic 154 mm Hg Mar, Blood pressure diastolic 112 mm Hg Mar, MEDICATIONS Medication SIG (Take, Route, Frequency, Duration) Notes Start Da te End Date Status Amoxicillin-Pot Clavulanate 875-125 MG 1 tablet Orally every 12 hrs for 10 day(s) Active AmLODIPine Besylate 5 MG 1 tablet Orally Once a day for 30 days Not-Taking Robaxin-750 750 MG 1 tablet Orally every 8 hours for 14 days Active Lisinopril 10 MG 1 tablet Orally Once a day for 30 days Active Lisinopril 20 MG 1 tablet Orally Once a day for 30 day(s) Mar, Active IBU-200 200 MG 1 tablet with food or milk as needed Orally Thre e times a day Active PROCEDURES No Information RESULTS No Results REASON FOR VISIT 4 Weeks (Reason: f/u bp, labs) MEDICAL (GENERAL) HISTORY Type Description Date Medical [...] Notes Treatment Notes Treatm ent Clinical Notes Mar, Essential hypertension (ICD-10 - I10) Repeating BMP to recheck K as it was hemolyzed last visit. Patient had yet to start chlorthalidone, through shared decision making he would like to increase the lisinopril prior to initiating a new medication. Advised lifestyle changes life low sodium diet and increased exercise. Mar, Atypical chest pain (ICD-10 - R07.89) Self resolved. Mar, Acute right-sided low back pain without sciatica (ICD-10 - M54.5) Patient reports improvement with conservative care. Mar, Diabetes mellitus screening (ICD-10 - Z13.1) A1C within normal limits. Mar, Lipid screening (ICD-10 - Z13.220) ASCVD risk 3.1%, no indication for statin therapy. Mar, Nicotine use disorder (ICD-10 - F17.200) Continues to do well with cessation. Mar, Right testicular pain (ICD-10 - N50.811) May consider urology referral as exam entirely benign with no worrisome futures. Consider UA at next visit. Mar, Other see HTN PLAN OF TREATMENT Medication Medication Name Sig Start Date Stop Date Lisinopril 10 MG 1 tablet Orally Once a day for 30 days Lisinopril 20 MG 1 tablet Orally Once a day for 30 day(s) Mar Robaxin-750 750 MG 1 tablet Orally every 8 hours for 14 days Treatment Notes Assessment Notes Clinical Notes Essential hypertension Repeating BMP to recheck K as it was hemolyzed last visit. Patient had yet to start chlorthalidone, through shared decision making he would like to increase the lisinopril prior to initiating a new medication. Advised lifestyle changes life low sodium diet and increased exercise. Atypical chest pain Self resolved. Acute right-sided low back pain without sciatica Patient reports improvement with conservative care. Diabetes mellitus screening A1C within n ormal limits. Lipid screening ASCVD risk 3.1%, no indication for statin therapy. Nicotine use disorder Continues to do we ll with cessation. Right testicular pain May consider urolo gy referral as exam entirely benign with no worrisome futures. Consider UA at next visit. Treatment Notes Test Name Order Date Basic Metabolic Profile (BMP) 2020-03-07 PLZ SCROTAL US 2020-03-07 Next Appt Details 4 Weeks Reason:f/u BP Provider Name:Christopher Nickorlin, 2020-04-08 03 :00:00 PM, [address] [facility], [place], [place], [id number], Follow Up:4 Weeksf/u BP Insurance Providers Payer Name Payer Address Payer Phone Insured Name Patient Relati onship to Insured Coverage Start Date Coverage End Date [facility] [address] [address] [facility] [phone] Cathy Gill
--- OUTSIDE RECORDS SUMMARY | 2020-05-29 18:22 | CCD ---
Author Author [facility] Organization [facility] Address Unknown Phone Unavailable Support Name Relationship Address Phone PAULIRMA CATHY Next Of Kin [address] [place] [address] [facility] Next Of Kin [address] [place] [address] CATHY LOWE Next Of Kin [address] [place] [address] [facility] Next Of Kin [address] [place] [id number] [employer] Next Of Kin [address] [place] [address] REGLA LOWE Next Of Kin [address] [place] [id number] Cathy Lowe [facility] [address] [place] [address] [phone] Re-disclosure Warning The records that you are about to access may contain information from federally-assisted alcohol or drug abuse programs. If such information is present, then the following federally mandated warning applies: This information has been disclosed to you from records protected by federal confidentiality rules (42 CFR part 2). The federal rules prohibit you from making any further disclosure of this information unless further disclosure is expressly permitted by the written consent of the person to whom it pertains or as otherwise permitted by 42 CFR part 2. A general authorization for the release of medical or other information is NOT sufficient for this purpose. The Federal rules restrict any use of the information to criminally investigate or prosecute any alcohol or drug abuse patient.The records that you are about to access may contain highly sensitive health information, the redisclosure of which is protected by Article 27-F of the [facility] Public Health law. If you continue you may have access to information: Regarding HIV / AIDS; Provided by facilities licensed or operated by the [facility] Office of Mental Health; or Provided by the [facility] Office for People With Developmental Disabilities. If such information is present, then the following [facility] mandated warning applies: This information has been disclosed to you from confidential records which are protected by state law. State law prohibits you from making any further disclosure of this information without the specific written consent of the person to whom it pertains, or as otherwise permitted by law. Any unauthorized further disclosure in violation of state law may result in a fine or fci sentence or both. A general authorization for the release of medical or other information is NOT sufficient authorization for further disc losure. Family History Family Member Name Family Member Gender Family Member Status Date o f Status Description Data Source(s) Unknown Male Problem [facility] ([facility]) Encounters Encounter Providers Location Date Indications Data Source(s ) Outpatient [address] [facility] [id number] 04/22/2020 12:00:00 AM EST eCW1 ([facility]) Outpatient [address] [facility] [id number] 04/08/2020 12:00:00 AM EST eCW1 ([facility]) Outpatient [address] [facility] [id number] 03/04/2020 12:00:00 AM EST eCW1 ([facility]) Outpatient [address] [facility] [id number] 02/14/2020 12:00:00 AM EST eCW1 ([facility]) Unknown [address] [facility] [id number] 02/08/2020 12:00:00 AM EST eCW1 ([facility]) (TCM) Transition of Care Visit [address] [place] [address] 02/06/2020 12:00:00 AM EST eCW1 ([facility]) Unknown [address] [facility] [id number] 02/06/2020 12:00:00 AM EST eCW1 ([facility]) Unknown [address] [facility] [id number] 02/06/2020 12:00:00 AM EST eCW1 ([facility]) Unknown [address] [facility] [address] 02/04/2020 12:00:00 AM EST eCW1 ([facility]) Immunizations Vaccine Date Status Description Data Source(s) pneumococcal polysaccharide PPV23 02/06/2020 11:50:00 AM EST comple antonette eCW1 ([facility]) pneumococcal polysaccharide PPV23 02/06/2020 11:50:00 AM EST comple antonette eCW1 ([facility]) pneumococcal polysaccharide PPV23 02/06/2020 11:50:00 AM EST comple antonette eCW1 ([facility]) pneumococcal polysaccharide PPV23 02/06/2020 11:50:00 AM EST comple antonette eCW1 ([facility]) pneumococcal polysaccharide PPV23 02/06/2020 11:50:00 AM EST comple antonette eCW1 ([facility]) pneumococcal polysaccharide PPV23 02/06/2020 11:50:00 AM EST comple antonette eCW1 ([facility]) pneumococcal polysaccharide PPV23 02/06/2020 11:50:00 AM EST comple antonette eCW1 ([facility]) pneumococcal polysaccharide PPV23 02/06/2020 11:50:00 AM EST comple antonette eCW1 ([facility]) Medications Medication Brand Name Start Date Product Form Dose Route Admi nistrative Instructions Pharmacy Instructions Status Indications Reaction Description Data Source(s) 20 mg 04/28/2020 12:00:00 AM EST tablet 30 TAKE ONE TABLET BY MOUTH EVERY DAY TAKE ONE TABLET BY MOUTH EVERY DAY SOLD: 05/11/2020 [facility] 25 mg 04/09/2020 12:00:00 AM EST tablet 30 TAKE ONE TABLET BY MOUTH EVERY MORNING WITH FOOD TAKE ONE TABLET BY MOUTH EVERY MORNING WITH FOOD SOLD: 05/11/2020 [facility] 25 mg 04/09/2020 12:00:00 AM EST tablet 30 TAKE ONE TABLET BY MOUTH EVERY MORNING WITH FOOD TAKE ONE TABLET BY MOUTH EVERY MORNING WITH FOOD SOLD: 04/11/2020 [facility] 20 mg 03/05/2020 12:00:00 AM EST tablet 30 TAKE ONE TABLET BY MOUTH EVERY DAY TAKE ONE TABLET BY MOUTH EVERY DAY SOLD: 04/08/2020 [facility] 20 mg 03/05/2020 12:00:00 AM EST tablet 30 TAKE ONE TABLET BY MOUTH EVERY DAY TAKE ONE TABLET BY MOUTH EVERY DAY SOLD: 03/06/2020 [facility] 10 mg 03/05/2020 12:00:00 AM EST tablet 30 TAKE ONE TABLET BY MOUTH EVERY DAY TAKE ONE TABLET BY MOUTH EVERY DAY SOLD: 03/06/2020 [facility] Lisinopril 20 MG Oral Tablet Lisinopril 20 MG 03/04/2020 12:00:00 A M EST 1.0 {tablet} active Lisinopril 20 MG eCW1 ( [facility]) Lisinopril 20 MG Oral Tablet Lisinopril 20 MG 03/04/2020 12:00:00 A M EST 1.0 {tablet} active Lisinopril 20 MG eCW1 ( [facility]) Chlorthalidone 25 MG Oral Tablet Chlorthalidone 25 MG 2019 12:00:00 AM EST 1.0 {tablet_in_the_morning_with_food} active Chlorthalidone 25 MG eCW1 ([facility]) Methocarbamol 750 MG Oral Tablet [Robaxin] Robaxin-750 750 MG Robaxin-750 750 MG 02/14/2020 12:00:00 AM EST 1.0 {tablet} active Robaxin-750 750 MG eCW1 ([facility]) 10 mg 02/07/2020 12:00:00 AM EST tablet 30 TAKE ONE TABLET BY MOUTH EVERY DAY TAKE ONE TABLET BY MOUTH EVERY DAY SOLD: 02/08/2020 [facility] Lisinopril 10 MG Oral Tablet Lisinopril 10 MG 02/06/2020 12:00:00 A M EST 1.0 {tablet} active Lisinopril 10 MG eCW1 ( [facility]) Lisinopril 10 MG Oral Tablet Lisinopril 10 MG 02/06/2020 12:00:00 A M EST 1.0 {tablet} active Lisinopril 10 MG eCW1 ( [facility]) Lisinopril 10 MG Oral Tablet Lisinopril 10 MG 02/06/2020 12:00:00 A M EST 1.0 {tablet} active Lisinopril 10 MG eCW1 ( [facility]) Lisinopril 10 MG Oral Tablet Lisinopril 10 MG 02/06/2020 12:00:00 A M EST 1.0 {tablet} active Lisinopril 10 MG eCW1 ( [facility]) 600 mg 02/02/2020 12:00:00 AM EDT tablet 40 TAKE ONE TABLET BY MOUTH FOUR TIMES A DAY NEEDED TAKE ONE TABLET BY MOUTH FOUR TIMES A DAY NEEDED SO LD: 02/02/2020 [facility] 875 mg 02/02/2020 12:00:00 AM EDT tablet 20 TAKE ONE TABLET BY MOUTH TWICE A DAY FOR 10 DAYS TAKE ONE TABLET BY MOUTH TWICE A DAY FOR 10 DAYS SOLD: 02/02/2020 [facility] 250 mg 05/01/2019 12:00:00 AM EST tablet 6 TAKE TWO TABLETS BY MOUTH AT ONCE ON THE FIRST DAY THEN TAKE ONE DAILY THEREAFTER TAKE TWO TABLETS BY MOUTH AT ONCE ON THE FIRST DAY THEN TAKE ONE DAILY THEREAFTER SOLD: 05/01/2019 [facility] 75 mg 05/01/2019 12:00:00 AM EST capsule 10 TAKE ONE CAPSULE BY MOUTH TWICE A DAY FOR 5 DAYS TAKE ONE CAPSULE BY MOUTH TWICE A DAY FOR 5 DAYS SOLD: 05/01/2019 [facility] Insurance Providers Payer name Policy type / Coverage type Policy ID Covered libertarian ID Covered libertarian's relationship to cooper Policy Cooper Plan Information R [facility] R O S [facility] [id number] SELF PAY ONLY [id number] SP [id number] [facility] O [id number] S [id number] ANSI-Not a Secondary Insurance [id number] ANSI-Medicaid [id number] ANSI-Not a Secondary Insurance [id number] ANSI-Medicaid [id number] ANSI-Not a Secondary Insurance [id number] ANSI-Medicaid [id number] ANSI-Medicaid [id number] ANSI-Not a Secondary Insurance [id number] SELF PAY ONLY [id number] SP [id number] [facility] COMMUNITY PLAN MCDO [id number] SP [id number] [facility] COMMUNITY PLAN MCDO [id number] ANSI-Medicaid [id number] ANSI-Medicaid [id number] [facility] COMMUNITY PLAN MCDO [id number] SP [id number] [facility] COMMUNITY PLAN MCDO [id number] SP [id number] [facility] Community Plan Medigap Part B [id number] Self [id number] [place] [employer] Workers Compensation [id number] Self [id number] [facility] Community Plan Commercial [id number] Self [id number] SELF PAY ONLY [id number] SP [id number] [employer] O [id number] S [id number] [employer]ER[employer] [id number] SP [id number] OTHER WORKERS COMPENSATI P [id number] S [id number] SRS MED BILL [id number] SP [id number] OTHER WORKERS COMPENSATION [id number] SP [id number] [facility] [id number] SP [id number] Problems, Conditions, and Diagnoses Code Display Name Description Problem Type Effective Dates Data Source(s) I10 70646950 Essential hypertension Problem 02/06/2020 12 :00:00 AM EST eCW1 ([facility]) F17.200 37186268 Nicotine use disorder Problem 02/06/2020 12: 00:00 AM EST eCW1 ([facility]) Surgeries/Procedures Procedure Description Date Indications Data Source(s) PNEUMOCOCCAL POLYSAC VACCINE 23-V 2 />YR SUBQ/IM 02/05 12:00:00 AM EST eCW1 ([facility]) Social History Code Duration Value Status Description Data Source(s ) Smoking 04/22/2020 12:00:00 AM EST Former Smoker completed Former Smoker eCW1 ([facility]) Smoking 04/08/2020 12:00:00 AM EST Former Smoker completed Former Smoker eCW1 ([facility]) Smoking 03/04/2020 12:00:00 AM EST Current Smoker completed Curre nt Smoker eCW1 ([facility]) Smoking 03/04/2020 12:00:00 AM EST Current Smoker completed Curre nt Smoker eCW1 ([facility]) Smoking 02/14/2020 12:00:00 AM EST Current Smoker completed Curre nt Smoker eCW1 ([facility]) Smoking 02/06/2020 12:00:00 AM EST Current Smoker completed Curre nt Smoker eCW1 ([facility]) Smoking 02/06/2020 12:00:00 AM EST Current Smoker completed Curre nt Smoker eCW1 ([facility]) Smoking 02/06/2020 12:00:00 AM EST Current Smoker completed Curre nt Smoker eCW1 ([facility]) Vital Signs ID Date Data Source UNK Name Value Range Interpretation Code Description Data Source(s) Diastolic blood pressure 100 mm[Hg] 100 mm[Hg] eCW1 ([facility]) Systolic blood pressure 144 mm[Hg] 144 mm[Hg] e CW1 ([facility]) Respiratory rate 18 /min 18 /min eCW1 ([facility]) Heart rate 69 /min 69 /min eCW1 ([facility]) Body mass index (BMI) [Ratio] 33.90 kg/m2 33.90 kg/m2 eCW1 ([facility]) Body height 72 [in_i] 72 [in_i] eCW1 ([facility]) Body weight 250 [lb_av] 250 [lb_av] eCW1 ([facility]) Diastolic blood pressure 96 mm[Hg] 96 mm[Hg] eCW1 ([facility]) Systolic blood pressure 144 mm[Hg] 144 mm[Hg] e CW1 ([facility]) Body temperature 96.9 [degF] 96.9 [degF] eCW1 ( [facility]) Respiratory rate 17 /min 17 /min eCW1 ([facility]) Heart rate 70 /min 70 /min eCW1 ([facility]) Body mass index (BMI) [Ratio] 33.90 kg/m2 33.90 kg/m2 eCW1 ([facility]) Body height 72 [in_i] 72 [in_i] eCW1 ([facility]) Body weight 250 [lb_av] 250 [lb_av] eCW1 ([facility]) Diastolic blood pressure 112 mm[Hg] 112 mm[Hg] eCW1 ([facility]) Systolic blood pressure 154 mm[Hg] 154 mm[Hg] e CW1 ([facility]) Body temperature 97.1 [degF] 97.1 [degF] eCW1 ( [facility]) Respiratory rate 18 /min 18 /min eCW1 ([facility]) Heart rate 80 /min 80 /min eCW1 ([facility]) Body mass index (BMI) [Ratio] 33.77 kg/m2 33.77 kg/m2 eCW1 ([facility]) Body height 72 [in_i] 72 [in_i] eCW1 ([facility]) Body weight 249 [lb_av] 249 [lb_av] eCW1 ([facility]) Diastolic blood pressure 104 mm[Hg] 104 mm[Hg] eCW1 ([facility]) Systolic blood pressure 164 mm[Hg] 164 mm[Hg] e CW1 ([facility]) Body temperature 96.8 [degF] 96.8 [degF] eCW1 ( [facility]) Respiratory rate 18 /min 18 /min eCW1 ([facility]) Heart rate 69 /min 69 /min eCW1 ([facility]) Body mass index (BMI) [Ratio] 33.50 kg/m2 33.50 kg/m2 eCW1 ([facility]) Body height 72 [in_i] 72 [in_i] eCW1 ([facility]) Body weight 247 [lb_av] 247 [lb_av] eCW1 ([facility]) Diastolic blood pressure 110 mm[Hg] 110 mm[Hg] eCW1 ([facility]) Systolic blood pressure 162 mm[Hg] 162 mm[Hg] e CW1 ([facility]) Body temperature 96.8 [degF] 96.8 [degF] eCW1 ( [facility]) Respiratory rate 18 /min 18 /min eCW1 ([facility]) Heart rate 93 /min 93 /min eCW1 ([facility]) Body mass index (BMI) [Ratio] 33.50 kg/m2 33.50 kg/m2 eCW1 ([facility]) Body height 72 [in_i] 72 [in_i] eCW1 ([facility]) Body weight 247 [lb_av] 247 [lb_av] eCW1 ([facility]) Patient Treatment Plan of Care Planned Activity Planned Date Details Description Data Source (s) Lisinopril 20 MG Oral Tablet 03/04/2020 12:00:00 AM EST eCW1 ([facility]) Lisinopril 20 MG Oral Tablet 03/04/2020 12:00:00 AM EST eCW1 ([facility]) Chlorthalidone 25 MG Oral Tablet 02/14/2020 12:00:00 AM EST eCW1 ([facility]) Methocarbamol 750 MG Oral Tablet [Robaxin] 02/14/2020 12:00:[address] eCW1 ([facility]) Lisinopril 10 MG Oral Tablet 02/06/2020 12:00:00 AM EST eCW1 ([facility]) Lisinopril 10 MG Oral Tablet 02/06/2020 12:00:00 AM EST eCW1 ([facility]) Lisinopril 10 MG Oral Tablet 02/06/2020 12:00:00 AM EST eCW1 ([facility]) Lisinopril 10 MG Oral Tablet 02/06/2020 12:00:00 AM EST eCW1 ([facility])
--- OUTSIDE RECORDS SUMMARY | 2020-05-29 18:22 | CCD ---
Author Author [facility] Organization [facility] Address Unknown Phone Unavailable Care Team Providers Care Settlement Processor Name Role Phone Christopher Shi Unavailable PROBLEMS Type Condition ICD9-CM Code [id number] Code Onset Dates Condition S tatus SNOMED Code Notes Problem Nicotine use disorder F17.200 Active 22589955 Problem Essential hypertension I10 Active 26408537 Problem Obesity (BMI 30-39.9) E66.9 Active 698651725 Problem Iron deficiency anemia, unspecified iron deficiency an emia type D50.9 Active 43492490 Problem Acute midline low back pain with right-sided sciatica M54.41 Active 629719743 Problem Cigarette smoker F17.210 Active 72828787 ALLERGIES Allergen (clinical drug ingredient) Drug/Non Drug Allergy do cumented on EMR Reaction Allergy Type Onset Date Status seafood Anaphylaxis Non Drug Allergy Active ENCOUNTERS from 1975 to 2020-04-07 Encounter Location Date Provider Diagnosis [facility] Resident [address] [place] [address] 12 Feb, 2020 Christopher Shi Atypical chest pain R07.89 ; Essential hypertension I10 ; Elevated serum creatinine R79.89 ; Diabetes mellitus screening Z13.1 ; Lipid screening Z13.220 ; Nicotine use disorder F17.200 and Acute right-sided low back pain without sciatica M54.5 IMMUNIZATIONS Vaccine Route Administration Date Status Pneumococcal Adult 0.5mL (Pneumovax 23) IM Intramuscular Feb 06, 2020 Administered SOCIAL HISTORY Tobacco Use: Social History Observation Description Date Details (start date - stop date) Current Smoker Sex Assigned At : Social History Observation Description Sex Assigned At Unknown Education: Question Answer Notes Level of Education: Finished [employer] Language: Question Answer Notes Languages spoken: Mauritanian Restorationism: Question Answer Notes Restorationism 21 [employer] Domestic Violence: Question Answer Notes Status: Number [...] FOR REFERRAL No Information VITAL SIGNS Weight 247 lbs Feb, Height 72 in Feb, BMI 33.50 kg/m2 Feb, Heart Rate 69 /min Feb, Respiratory Rate 18 /min Feb, Temperature 96.8 degrees Fahrenheit Feb, Oximetry 100 Feb, Blood pressure systolic 164 mm Hg Feb, Blood pressure diastolic 104 mm Hg Feb, MEDICATIONS Medication SIG (Take, Route, Frequency, Duration) [...] Information RESULTS No Results REASON FOR VISIT [facility] Follow up MEDICAL (GENERAL) HISTORY Type Description Date Medical [...] Notes Treatment Notes Treatm ent Clinical Notes Feb, Atypical chest pain (ICD-10 - R07.89) I feel this is likely msk based on my PE findings of chest wall tenderness and his history being inconsistent with pain that is cardiac in origin. I also still have anxiety on the differential and advised him to be mindful of this moving forward as it was a possibility. Advised round the clock tylenol MDD 4 grams along with the robaxin as needed/tolerated. Feb, Essential hypertension (ICD-10 - I10) His blood pressure is still uncontrolled and as he does not seem to be able to tolerate amlodipine based on the fatigue he seemed to experience I will hold off on adding an additional CCB (could consider trial of verapamil or diltiazem in the future). His HR is also on the low side so I am hesitant to start a BB. Will await the results of his repeat BMP and consider adding chlorthalidone. Advised him I would send in that script if it was normal or showing improvement. Sending chlorthalidone. Will repeat BMP at next visit, creatinine trending down appropriately. K slightly hemolyzed at 4.6. Feb, Elevated serum creatinine (ICD-10 - R79.89) see HTN Feb, Diabetes mellitus screening (ICD-10 - Z13.1) Feb, Lipid screening (ICD-10 - Z13.220) Feb, Nicotine use disorder (ICD-10 - F17.200) Congratulated on his continued cessation. Feb, Acute right-sided low back pain without sciatica (ICD-10 - M54.5) Will trial him on muscle relaxant and tylenol to see if this helps with his back pain. He is agreeable to this plan. PLAN OF TREATMENT Medication Medication Name Sig Start Date Stop Date Lisinopril 10 MG 1 tablet Orally Once a day for 30 days Lisinopril 20 MG 1 tablet Orally Once a day for 30 day(s) Mar Robaxin-750 750 MG 1 tablet Orally every 8 hours for 14 days Treatment Notes Assessment Notes Clinical Notes Atypical chest pain I feel this is likel y msk based on my PE findings of chest wall tenderness and his history being inconsistent with pain that is cardiac in origin. I also still have anxiety on the differential and advised him to be mindful of this moving forward as it was a possibility. Advised round the clock tylenol MDD 4 grams along with the robaxin as needed/tolerated. Essential hypertension His blood pressur e is still uncontrolled and as he does not seem to be able to tolerate amlodipine based on the fatigue he seemed to experience I will hold off on adding an additional CCB (could consider trial of verapamil or diltiazem in the future). His HR is also on the low side so I am hesitant to start a BB. Will await the results of his repeat BMP and consider adding chlorthalidone. Advised him I would send in that script if it was normal or showing improvement.Sending chlorthalidone. Will repeat BMP at next visit, creatinine trending down appropriately. K slightly hemolyzed at 4.6. Elevated serum creatinine see HTN Nicotine use disorder Congratulated on h is continued cessation. Acute right-sided low back pain without sciatica Will trial him on muscle relaxant and tylenol to see if this helps with his back pain. He is agreeable to this plan. Treatment Notes Test Name Order Date HEMOGLOBIN A1c 2020-04-07 LIPID PANEL (CARDIAC RISK) 2020-04-07 Basic Metabolic Profile (BMP) 2020-04-07 Next Appt Details 4 weeks as scheduled Reason:f/u labs Provider Name:Christopher Nickorlin, 2020-04-08 03 :00:00 PM, [address] [facility], [place], [address], Follow Up:4 weeks as scheduledf/u labs Insurance Providers Payer Name Payer Address Payer Phone Insured Name Patient Relati onship to Insured Coverage Start Date Coverage End Date [facility] [address] [address] [facility] [id number] Cathy Gill
[2020-05-29] MEDS ORDERED: LISI20TA33 (18:25)
--- NOTE | 2020-05-29 19:18 | REP ---
INDICATION: LIFTING INJURY, PAIN. COMPARISON: None. TECHNIQUE: Three views. FINDINGS: Three views of the left shoulder demonstrate normal alignment of the glenohumeral and acromioclavicular joints. No fracture or subluxation is seen. Periarticular soft tissues are unremarkable IMPRESSION: Negative left shoulder radiographs. <Electronically signed by Sandoval Owens > 05/29/20 [id number]
== END 2020-05-29 19:05 | disposition home or self-care (01) ==
LOC: M ED 18:17
DX: S46.012A Strain of muscle(s) and tendon(s) of the rotator cuff of left shoulder, initial encounter (principal); X58.XXXA Exposure to other specified factors, initial encounter; Y92.89 Other specified places as the place of occurrence of the external cause; I10 Essential (primary) hypertension; G43.909 Migraine, unspecified, not intractable, without status migrainosus; Z91.018 Allergy to other foods; Z79.899 Other long term (current) drug therapy; Z87.891 Personal history of nicotine dependence

== ENCOUNTER → 2020-06-03 | Outpatient (REF) | payer OTHER ==
[~2020-06-03] MED LIST changes: +LISI20TA33
== END ==
LOC: M SFHCPLAZ 10:10
PROVIDERS: ATTEND Family Medicine
DX: I10 Essential (primary) hypertension (principal)

== ENCOUNTER → 2020-06-18 | Outpatient (CLI) | payer OTHER ==
--- NOTE | 2020-06-18 12:31 | REP ---
INDICATION: INPINGMENT SYNDROME LT SHOULER ? RTC. COMPARISON: Comparison radiographs are from May 29, 2020.. TECHNIQUE: Axial, oblique coronal, and oblique sagittal imaging planes utilized. T1 and T2 weighted scans are obtained with without fat saturation in the usual fashion. FINDINGS: Cortical and medullary bone signal intensity are normal. On T2 weighted scans there is no evidence of joint effusion. There is a tiny sliver of fluid along the bursal surface of the distal supraspinatus tendon in a linear fashion consistent with partial thickness supraspinatus lesion. Tendinitis tendinosis change. The subscapularis and infraspinatus tendons are unremarkable. Biceps tendon is seen normal in appearance. No anterior or posterior labral cartilage tear is seen. The superior labral cartilage is unremarkable. There is mild osteoarthritic hypertrophy at the acromioclavicular joint superiorly and inferiorly. 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 Tendinitis tendinosis change distal supraspinatus tendon question partial thickness distal supraspinatus bursal surface lesion. Otherwise negative. <Electronically signed by Sandoval Owens > 06/18/20 [id number]
== END ==
LOC: M PLARAD 08:41
PROVIDERS: ATTEND Orthopaedic Surgery Sports Medicine
DX: M19.012 Primary osteoarthritis, left shoulder (principal); M75.22 Bicipital tendinitis, left shoulder; M75.42 Impingement syndrome of left shoulder

== ENCOUNTER → 2020-06-20 | Outpatient (CLI) | payer OTHER | LOC: CANPRECLI → M SOG 16:11 | PROVIDERS: ATTEND Orthopaedic Surgery Sports Medicine | DX: Z53.9 Procedure and treatment not carried out, unspecified reason (principal) ==

== ENCOUNTER 2020-06-26 07:00 | Outpatient (RCR) | payer OTHER | END 2020-07-02 | LOC: M PT 07:00 | PROVIDERS: ATTEND Orthopaedic Surgery Sports Medicine | DX: M75.42 Impingement syndrome of left shoulder (principal) ==

== ENCOUNTER 2022-03-30 10:43 | Emergency (ER) | payer OTHER ==
[~2022-03-30] VITALS: Ht 188 cm; Wt 119.0 kg
[2022-03-30] MEDS ORDERED: PENI500T PO (13:20)
[2022-03-30] MEDS ORDERED: HYDR-3713 PO (13:20)
[2022-03-30 13:31] VITALS: BP 150/82
== END 2022-03-30 13:32 | disposition home or self-care (01) ==
LOC: M ED 10:43
DX: K04.7 Periapical abscess without sinus (principal); R68.84 Jaw pain; I10 Essential (primary) hypertension; Z91.013 Allergy to seafood; Z79.899 Other long term (current) drug therapy

== ENCOUNTER → 2024-11-06 | Outpatient (REF) | payer OTHER ==
[~2024-11-06] MED LIST changes: +CHLO125TA; +PENI500T PO
== END ==
LOC: M SFHCPLAZ 10:10
PROVIDERS: ATTEND Family Medicine
DX: Z53.9 Procedure and treatment not carried out, unspecified reason (principal); D50.9 Iron deficiency anemia, unspecified; Z13.1 Encounter for screening for diabetes mellitus; Z13.220 Encounter for screening for lipoid disorders; I10 Essential (primary) hypertension

== ENCOUNTER 2025-02-07 07:32 | Day surgery (SDC) | payer OTHER ==
[~2025-02-07] VITALS: Ht 188 cm; Wt 110.2 kg
[~2025-02-07 07:32] MED LIST changes: -IBUP1TAB6 PO; +LIDOCAINE 2% 100 MG/5 ML SDV (FOR ANES.) As Ordered ONE; +SFHIBU600 PO
[2025-02-07 08:47] VITALS: TEMP 98
[2025-02-07 09:02] VITALS: BP 132/85; O2SAT 97
== END 2025-02-07 09:12 | disposition home or self-care (01) ==
LOC: M OPP 07:32
PROVIDERS: ATTEND Surgery
DX: Z12.11 Encounter for screening for malignant neoplasm of colon (principal); K64.2 Third degree hemorrhoids; Z91.013 Allergy to seafood; Z79.899 Other long term (current) drug therapy; Z87.891 Personal history of nicotine dependence